=== PATIENT | female | born 2000 | race African-American/Black ===

== ENCOUNTER 2021-09-28 12:15 | Outpatient (CLI) | payer OTHER | END 2021-09-28 12:16 | disposition home or self-care (01) | LOC: CSHULT 12:15 | PROVIDERS: ATTEND Family Medicine | DX: O36.5930 Maternal care for other known or suspected poor fetal growth, third trimester, not applicable or unspecified (principal); Z3A.30 30 weeks gestation of pregnancy | CPT/HCPCS: 76816 ==

== ENCOUNTER 2021-10-23 15:15 | Day surgery (SDC) | payer OTHER | END 2021-10-23 18:06 | disposition home or self-care (01) | LOC: CSHLD/OP 15:15 | PROVIDERS: ATTEND Family Medicine | DX: O36.5930 Maternal care for other known or suspected poor fetal growth, third trimester, not applicable or unspecified (principal); Z3A.35 35 weeks gestation of pregnancy | CPT/HCPCS: 76815; 76819; 99281 ==

== ENCOUNTER 2021-10-30 15:12 | Day surgery (SDC) | payer OTHER ==
[2021-10-30 15:35] VITALS: BMI 22.6
== END 2021-10-30 18:16 | disposition left against medical advice (07) ==
LOC: CSHLD/OP 15:12
PROVIDERS: ATTEND Family Medicine
DX: O36.5930 Maternal care for other known or suspected poor fetal growth, third trimester, not applicable or unspecified (principal); Z3A.36 36 weeks gestation of pregnancy; Z53.29 Procedure and treatment not carried out because of patient's decision for other reasons
CPT/HCPCS: 76815; 76819; 99282

== ENCOUNTER 2021-11-06 15:27 | Inpatient (IN) | payer OTHER ==
[~2021-11-06 15:27] MED LIST: Bupivacaine 0.25% HCL 30 ML VIAL ONE
[2021-11-06 16:13] VITALS: BMI 21.6
[2021-11-06] MEDS ORDERED: Diphenoxylate HCl/Atropine Tablet PO PRN (18:23)
[2021-11-06] MEDS ORDERED: Acetaminophen 500 MG TAB PO PRN (18:23)
[2021-11-06] MEDS ORDERED: Ibuprofen 800 MG TAB PO PRN (18:23)
[2021-11-06] MEDS ORDERED: Promethazine HCl 25 MG/ML VIAL IM PRN (18:23)
[2021-11-06] MEDS ORDERED: Lidocaine 1% (PF) 30 ML VIAL SC PRN (18:23)
[2021-11-06] MEDS ORDERED: Ondansetron PF 4 MG/2 ML Vial IVP PRN (18:23)
[2021-11-06] MEDS ORDERED: Misoprostol 200 MCG TAB PR PRN (18:23)
[2021-11-06] MEDS ORDERED: HYDROcodone/Acetaminophen 5/325 mg Tablet PO PRN (18:23)
[2021-11-06] MEDS ORDERED: Carboprost 250 MCG/ML AMP IM PRN (18:23)
[2021-11-06] MEDS ORDERED: NS w/ Oxytocin 30 units 500 ML IVPB SCH (18:30)
[2021-11-06] MEDS ORDERED: NS w/ Oxytocin 30 units 500 ML IV SCH ×2 (18:30)
[2021-11-06] MEDS ORDERED: Penicillin G Potassium 5 MILL.UNITS in Sodium Chloride 0.9% 100 ML IVPB SCH (18:30)
[2021-11-06] MEDS: Misoprostol 100 MCG TAB VAG SCH (20:02)
[2021-11-06 20:22] LABS: Hemoglobin 11.6 g/dL (12.0-15.5); Mean Corpuscular HGB CONC 34.4 g/dL (32.0-36.0); Mean Corpuscular Hemoglobin 32.2 pg (27.0-33.0); Mean Corpuscular Volume 93.6 fl (81.6-98.3); Mean Platelet Volume 12.2 fl (7.4-10.4); Platelet Count 185 10x3/uL (150-450); RBC Distribution Width 13.4 % (11.5-14.5); White Blood Cell (WBC) Count 10.6 10x3/uL (3.5-10.5)
[2021-11-06 20:52] LABS: Syphilis Antibody Nonreactive (Nonreactive); Syphilis Antibody Index 0.11 S/CO (<1.00 Non-Reactive)
[2021-11-06 20:55] LABS: Hep B Surf Ag Non-Reactive S/CO (NonReactive)
[2021-11-06 20:56] LABS: HBSAg Index 0.17 S/CO (0-0.99)
[2021-11-06] MEDS: hydrALAZINE 20 MG/ML VIAL SLOW IVP PRN (21:01)
[2021-11-06 21:20] LABS: SARS-CoV-2 NAA Rapid Test Not Detected (NotDetected)
[2021-11-06] MEDS: Butorphanol Tartrate 1 MG/ML VIAL SLOW IVP PRN (21:23)
[2021-11-07] MEDS: Penicillin G 2.5 MILL.units 2.5 MILL.UNITS in Premix Bag 1 BAG IVPB SCH ×3 (00:01→08:47)
[2021-11-07] MEDS: Butorphanol Tartrate 1 MG/ML VIAL SLOW IVP PRN ×3 (00:36→05:20)
[2021-11-07] MEDS: Misoprostol 100 MCG TAB VAG SCH (05:32)
[2021-11-07] MEDS ORDERED: Fentanyl 2 mcg/Bup 0.1% Cadd 100 ML ONE (08:04)
[2021-11-07] MEDS ORDERED: diphenhydrAMINE 50 MG/ML VIAL IVP PRN (08:41)
[2021-11-07] MEDS ORDERED: Naloxone HCl 0.4 mg/ml Vial IVP PRN ×2 (08:41)
[2021-11-07] MEDS ORDERED: Promethazine HCl 25 MG/ML VIAL IM PRN ×2 (08:41→14:39)
[2021-11-07] MEDS ORDERED: ePHEDrine Sulfate 50 MG/10 ML VIAL SLOW IVP PRN (08:41)
[2021-11-07] MEDS ORDERED: Lactated Ringer's 500 ML IV PRN (08:41)
[2021-11-07] MEDS ORDERED: Ondansetron PF 4 MG/2 ML Vial IVP PRN ×2 (08:41→14:39)
[2021-11-07] MEDS ORDERED: Hydrocerin (Eucerin) Cream 120 gm Jar TOP PRN (08:41)
[2021-11-07] MEDS ORDERED: Acetaminophen 325 MG TAB PO PRN (08:41)
[2021-11-07] MEDS: Lactated Ringer's 1,000 ML IV SCH (08:43)
[2021-11-07] MEDS ORDERED: Fentanyl 2 mcg/Bupivacaine 0.1% Cassette 100 ML EPIDURAL SCH (08:45)
[2021-11-07] MEDS ORDERED: Communication Order-Pharmacy FS SCH (08:45)
[2021-11-07] MEDS: hydrALAZINE 20 MG/ML VIAL SLOW IVP PRN (13:44)
[2021-11-07] MEDS ORDERED: Magnesium Sulfate 20 gm/500 ml 20 GM/500 ML BAG ONE (14:03)
[2021-11-07] MEDS ORDERED: hydrALAZINE 20 MG/ML VIAL SLOW IVP PRN (14:39)
[2021-11-07] MEDS ORDERED: Milk Of Magnesia 30 ML UDCUP PO PRN (14:39)
[2021-11-07] MEDS ORDERED: Boostrix 0.5 ML (Tdap) VIAL IM ONE (14:39)
[2021-11-07] MEDS ORDERED: Bisacodyl 10 MG SUPP PR PRN (14:39)
[2021-11-07] MEDS ORDERED: hydrALAZINE 20 MG/ML VIAL ONE (14:50)
[2021-11-07] MEDS ORDERED: Calcium Gluconate 4.6 MEQ in Sodium Chloride 0.9% 100 ML IVPB PRN (14:54)
[2021-11-07] MEDS ORDERED: Magnesium Sulfate 20 GM/WATER 500 ML BAG IVPB SCH (15:00)
[2021-11-07] MEDS ORDERED: Magnesium Sulfate 20 gm/500 ml 20 GM/500 ML BAG IVPB SCH (15:00)
[2021-11-07] MEDS: Ibuprofen 800 MG TAB PO SCH (22:00)
[2021-11-08] MEDS: Ferrous Sulfate 325 MG TAB PO SCH ×3 (00:12→16:29)
[2021-11-08] MEDS: Docusate Calcium (SURFAK) 240 MG CAP PO SCH ×3 (00:12→21:13)
[2021-11-08] MEDS: Misoprostol 100 MCG TAB VAG SCH ×2 (00:13→00:14)
[2021-11-08] MEDS: Lactated Ringer's 1,000 ML IV SCH ×2 (00:14→01:05)
[2021-11-08] MEDS: Penicillin G 2.5 MILL.units 2.5 MILL.UNITS in Premix Bag 1 BAG IVPB SCH (00:14)
[2021-11-08] MEDS: Ibuprofen 800 MG TAB PO SCH ×3 (05:51→21:13)
[2021-11-08] MEDS: diphenhydrAMINE 25 MG CAP PO PRN ×3 (10:21→21:17)
[2021-11-08] MEDS: HYDROcodone/Acetaminophen 5/325 mg Tablet PO PRN ×2 (10:21→17:14)
[2021-11-08] MEDS ORDERED: cloNIDine 0.1 MG TAB PO PRN (14:09)
[2021-11-08] MEDS: Prenatal Vitamin 1 TAB PO SCH (14:31)
[2021-11-09] MEDS: Ibuprofen 800 MG TAB PO SCH ×2 (05:53→08:17)
[2021-11-09] MEDS: Ferrous Sulfate 325 MG TAB PO SCH ×2 (07:59→17:32)
[2021-11-09] MEDS: Docusate Calcium (SURFAK) 240 MG CAP PO SCH (08:17)
[2021-11-09] MEDS: Prenatal Vitamin 1 TAB PO SCH (08:17)
[2021-11-09 17:46] VITALS: BP 134/75; TEMP 98.6
== END 2021-11-09 19:10 | disposition home or self-care (01) | DRG 807 ==
LOC: CSHLD/OP 15:27 → CSHLD 15:28 → CSHPP 11-08 13:55
PROVIDERS: ADMIT Obstetrics & Gynecology; ATTEND Family Medicine
PROC: 10E0XZZ Delivery of Products of Conception, External Approach (ICD-10-PCS; principal; 2021-11-07)
DX: O80 Encounter for full-term uncomplicated delivery (principal); Z37.0 Single live birth; Z20.822 Contact with and (suspected) exposure to COVID-19; Z3A.38 38 weeks gestation of pregnancy
CPT/HCPCS: 36415; 76815; 76819; 85027; 86780; 86850; 86900; 86901; 87340; 88307; J0360; J0595; J2540; J2550; J3475; J3490; J7120; S0020; U0002

== ENCOUNTER 2021-11-11 20:05 | Observation (INO) | payer OTHER ==
[2021-11-11 20:24] LABS: Bilirubin Neg (Negative); Blood, Urine 250 (Negative); Clarity Clear (Clear); Glucose, Urine (Dipstick) Normal (Negative); Ketone, Urine Negative (Negative); Leukocyte 500 (Negative); Nitrite Negative (Negative); Protein, Urine (Dipstick) Negative (Neg-Trace); Specific Gravity, Urine 1.005 (1.002-1.036); Urobilinogen Normal mg/dL (Less than 2)
[2021-11-11 20:30] LABS: WBC/HPF 0-3 HPF (0-3)
[2021-11-11 20:31] LABS: Squamous Epithelial 0-3 HPF (0-3); Transitional Epithelial 0-3 HPF (None Seen)
[2021-11-11 20:32] LABS: Bacteria/HPF Rare-Few HPF (None Seen)
[2021-11-11] MEDS: Magnesium Sulfate 20 gm/500 ml 20 GM/500 ML BAG IVPB SCH (20:48)
[2021-11-11 20:59] LABS: #Eosinphils 0.2 10x3/uL (0.0-0.5); #Monocytes 0.6 10x3/uL (0.0-1.1); #Neutrophils 4.7 10x3/uL (1.5-8.4); %Basophils 0.5 % (0.0-2.0); %Eosinophils 2.2 % (0.0-6.0); %Lymphocytes 35.1 % (18.0-47.0); %Monocytes 7.3 % (0.0-10.0); %Neutrophils 54.1 % (40.0-75.0); Hemoglobin 12.3 g/dL (12.0-15.5); Mean Corpuscular HGB CONC 33.4 g/dL (32.0-36.0); Mean Corpuscular Hemoglobin 31.9 pg (27.0-33.0); Mean Corpuscular Volume 95.3 fl (81.6-98.3); Mean Platelet Volume 10.6 fl (7.4-10.4); Platelet Count 280 10x3/uL (150-450); RBC Distribution Width 13.1 % (11.5-14.5); Red Blood Cell (RBC) Count 3.86 10x6/uL (3.90-5.03); White Blood Cell (WBC) Count 8.6 10x3/uL (3.5-10.5)
[2021-11-11] MEDS ORDERED: Calcium Gluconate 4.6 MEQ in Sodium Chloride 0.9% 100 ML IVPB PRN (20:59)
[2021-11-11] MEDS ORDERED: Magnesium Sulfate 20 GM/WATER 500 ML BAG IVPB SCH (21:00)
[2021-11-11] MEDS ORDERED: Labetalol HCl 100 MG/20 ML VIAL SLOW IVP PRN (21:00)
[2021-11-11] MEDS ORDERED: hydrALAZINE 20 MG/ML VIAL SLOW IVP PRN (21:00)
[2021-11-11 21:13] LABS: ALT (SGPT) 11 U/L (8-55); AST (SGOT) 20 U/L (5-34); Albumin 3.6 g/dL (3.5-5.0); Alkaline Phosphatase 167 U/L (40-100); Anion Gap 14 mmol/L (10-20); BUN (Urea Nitrogen) 11 mg/dL (7.0-18.7); Bilirubin, Total 0.2 mg/dL (0.2-1.2); CK (CPK) 148 U/L (29-168); Calc. Creatinine Clearance 0 mL/min (70-130); Calcium 9.4 mg/dL (7.8-10.44); Carbon Dioxide 17 mmol/L (22-29); Chloride 111 mmol/L (98-107); Globulin 3.5 g/dL (2.4-3.5); Glucose 70 mg/dL (70-105); Magnesium 3.4 mg/dL (1.7-2.2); Potassium 3.9 mmol/L (3.5-5.1); Protein, Total 7.1 g/dL (6.0-8.3); Sodium 138 mmol/L (136-145)
[2021-11-11 21:29] LABS: Creatinine, Urine 20.37 mg/dL (47-110); Protein, Urine Random Quant Less than 10 mg/dL (1-14)
[2021-11-12] MEDS: Acetaminophen 500 MG TAB PO PRN ×2 (02:16→08:03)
[2021-11-12 05:11] VITALS: BMI 23.1
[2021-11-12 07:22] VITALS: BP 161/92
[2021-11-12] MEDS: Magnesium Sulfate 20 gm/500 ml 20 GM/500 ML BAG IVPB SCH (07:22)
[2021-11-12] MEDS ORDERED: Metoclopramide HCl 10 MG/2 ML VIAL IVP PRN (14:36)
[2021-11-12] MEDS ORDERED: diphenhydrAMINE 50 MG/ML VIAL IVP PRN (14:36)
[2021-11-12] MEDS ORDERED: Ibuprofen 800 MG TAB PO PRN (15:00)
== END 2021-11-12 20:15 | disposition left against medical advice (07) ==
LOC: CSHERS 20:05 → INTOOBSV 21:06 → CSHLD 21:06
PROVIDERS: ADMIT Family Medicine; ATTEND Family Medicine
DX: O14.15 Severe pre-eclampsia, complicating the puerperium (principal); Z53.29 Procedure and treatment not carried out because of patient's decision for other reasons
CPT/HCPCS: 36415; 51702; 80053; 81003; 81015; 82550; 82570; 83735; 84156; 85025; J1200; J2765; J3475

== ENCOUNTER 2022-04-28 22:05 | Emergency (ER) | payer OTHER | END 2022-04-28 22:29 | disposition home or self-care (01) | LOC: CSHERS 22:05 | DX: O21.9 Vomiting of pregnancy, unspecified (principal); Z3A.01 Less than 8 weeks gestation of pregnancy | CPT/HCPCS: 99284 ==

== ENCOUNTER 2022-05-20 15:47 | Emergency (ER) | payer OTHER | END 2022-05-20 17:05 | disposition home or self-care (01) | LOC: CSHERS 15:47 | DX: O21.9 Vomiting of pregnancy, unspecified (principal); Z3A.08 8 weeks gestation of pregnancy | CPT/HCPCS: 99284 ==

== ENCOUNTER 2022-07-31 12:32 | Day surgery (SDC) | payer OTHER ==
[2022-07-31] MEDS: Lactated Ringer's 1,000 ML IV SCH ×2 (12:40→13:26)
[2022-07-31 12:51] VITALS: BMI 19.4
[2022-07-31] MEDS ORDERED: Morphine 10 MG/ML VIAL SLOW IVP SCH (13:00)
[2022-07-31] MEDS ORDERED: Promethazine HCl 25 MG/ML VIAL IM SCH (13:00)
[2022-07-31] MEDS ORDERED: Morphine 10 MG/ML VIAL ONE (13:07)
[2022-07-31 14:32] LABS: #Monocytes 0.5 10x3/uL (0.0-1.1); #Neutrophils 5.6 10x3/uL (1.5-8.4); %Basophils 0.5 % (0.0-2.0); %Eosinophils 0.5 % (0.0-6.0); %Lymphocytes 21.2 % (18.0-47.0); %Monocytes 5.8 % (0.0-10.0); %Neutrophils 71.4 % (40.0-75.0); Hemoglobin 9.7 g/dL (12.0-15.5); Mean Corpuscular Volume 94.1 fl (81.6-98.3); Mean Platelet Volume 10.5 fl (7.4-10.4); Platelet Count 222 10x3/uL (150-450); RBC Distribution Width 14.2 % (11.5-14.5); Red Blood Cell (RBC) Count 3.03 10x6/uL (3.90-5.03); White Blood Cell (WBC) Count 7.9 10x3/uL (3.5-10.5)
[2022-07-31 15:39] LABS: Bilirubin Neg (Negative); Blood, Urine Negative (Negative); Clarity Clear (Clear); Glucose, Urine (Dipstick) Normal (Negative); Ketone, Urine Negative (Negative); Leukocyte Negative (Negative); Nitrite Negative (Negative); Protein, Urine (Dipstick) Negative (Neg-Trace); Urobilinogen Normal mg/dL (Less than 2)
[2022-07-31 16:18] LABS: Bacteria/HPF Rare-Few HPF (None Seen); RBC/HPF 0-3 HPF (0-3); Squamous Epithelial 0-3 HPF (0-3); WBC/HPF 0-3 HPF (0-3)
== END 2022-07-31 17:45 | disposition home health service (06) ==
LOC: CSHLD/OP 12:32
PROVIDERS: ATTEND Family Medicine
DX: O26.892 Other specified pregnancy related conditions, second trimester (principal); R10.31 Right lower quadrant pain; N13.30 Unspecified hydronephrosis; Z3A.20 20 weeks gestation of pregnancy
CPT/HCPCS: 36415; 76770; 76805; 76815; 81001; 83605; 85025; 96360; 96361; 96372; 96375; 99284; J2270; J2550

== ENCOUNTER 2022-10-22 14:51 | Day surgery (SDC) | payer OTHER ==
[2022-10-22 15:12] VITALS: BMI 21.9
== END 2022-10-22 19:13 | disposition home or self-care (01) ==
LOC: CSHLD/OP 14:51
PROVIDERS: ATTEND Family Medicine
DX: O36.5930 Maternal care for other known or suspected poor fetal growth, third trimester, not applicable or unspecified (principal); Z3A.34 34 weeks gestation of pregnancy
CPT/HCPCS: 59025; 76815; 76819; 99281

== ENCOUNTER 2022-10-29 15:49 | Day surgery (SDC) | payer OTHER ==
[2022-10-29 17:04] VITALS: BMI 22.4
== END 2022-10-29 17:30 | disposition home or self-care (01) ==
LOC: CSHLD/OP 15:49
PROVIDERS: ATTEND Family Medicine
DX: O36.5930 Maternal care for other known or suspected poor fetal growth, third trimester, not applicable or unspecified (principal); Z36.89 Encounter for other specified antenatal screening; Z3A.33 33 weeks gestation of pregnancy
CPT/HCPCS: 59025; 76815; 76819; 99282

== ENCOUNTER 2022-11-05 14:46 | Day surgery (SDC) | payer OTHER | END 2022-11-05 16:50 | disposition home or self-care (01) | LOC: CSHLD/OP 14:46 | PROVIDERS: ATTEND Family Medicine | DX: O36.5990 Maternal care for other known or suspected poor fetal growth, unspecified trimester, not applicable or unspecified (principal); Z3A.00 Weeks of gestation of pregnancy not specified | CPT/HCPCS: 76819 ==

== ENCOUNTER 2022-11-12 09:15 | Day surgery (SDC) | payer OTHER | END 2022-11-12 11:10 | disposition home health service (06) | LOC: CSHLD/OP 09:15 | PROVIDERS: ATTEND Family Medicine | DX: Z36.89 Encounter for other specified antenatal screening (principal) | CPT/HCPCS: 76815; 76819 ==

== ENCOUNTER 2022-11-21 14:13 | Inpatient (IN) | payer OTHER ==
[~2022-11-21 14:13] MED LIST changes: -Bupivacaine 0.25% HCL 30 ML VIAL ONE; +Bupivacaine/Epinephrine 0.25% 30 ML VIAL ONE
[2022-11-21] MEDS ORDERED: Acetaminophen 500 MG TAB PO PRN (14:43)
[2022-11-21] MEDS ORDERED: Lidocaine 1% (PF) 30 ML VIAL SC PRN (14:43)
[2022-11-21] MEDS ORDERED: Methylergonovine 0.2 MG/ML VIAL IM PRN (14:43)
[2022-11-21] MEDS ORDERED: Diphenoxylate HCl/Atropine Tablet PO PRN (14:43)
[2022-11-21] MEDS ORDERED: Ondansetron PF 4 MG/2 ML Vial IVP PRN (14:43)
[2022-11-21] MEDS ORDERED: hydrALAZINE 20 MG/ML VIAL SLOW IVP PRN (14:43)
[2022-11-21] MEDS ORDERED: HYDROcodone/Acetaminophen 5/325 mg Tablet PO PRN (14:43)
[2022-11-21] MEDS ORDERED: Ibuprofen 800 MG TAB PO PRN (14:43)
[2022-11-21] MEDS ORDERED: Misoprostol 200 MCG TAB PR PRN (14:43)
[2022-11-21] MEDS ORDERED: Carboprost 250 MCG/ML AMP IM PRN (14:43)
[2022-11-21] MEDS ORDERED: Promethazine HCl 25 MG/ML VIAL IM PRN (14:43)
[2022-11-21] MEDS ORDERED: Misoprostol 100 MCG TAB PO SCH (14:45)
[2022-11-21] MEDS ORDERED: NS w/ Oxytocin 30 units 500 ML IV SCH (14:45)
[2022-11-21 17:01] VITALS: BMI 22.4
[2022-11-21] MEDS ORDERED: Penicillin G Potassium 5 MILL.UNITS VIAL ONE (17:48)
[2022-11-21] MEDS ORDERED: Penicillin G Potassium 5 MILL.UNITS in Sodium Chloride 0.9% 100 ML IVPB SCH (18:30)
[2022-11-21 18:37] LABS: Hemoglobin 9.9 g/dL (12.0-15.5); Mean Corpuscular HGB CONC 35.4 g/dL (32.0-36.0); Mean Corpuscular Hemoglobin 32.9 pg (27.0-33.0); Mean Platelet Volume 11.5 fl (7.4-10.4); Platelet Count 241 10x3/uL (150-450); RBC Distribution Width 13.2 % (11.5-14.5); Red Blood Cell (RBC) Count 3.01 10x6/uL (3.90-5.03); White Blood Cell (WBC) Count 9.4 10x3/uL (3.5-10.5)
[2022-11-21 19:29] LABS: HBSAg Index 0.14 S/CO (0-0.99); Hep B Surf Ag Non-Reactive S/CO (NonReactive)
[2022-11-21 19:31] LABS: Syphilis Antibody Nonreactive (Nonreactive); Syphilis Antibody Index 0.09 S/CO (<1.00 Non-Reactive)
[2022-11-21] MEDS: Misoprostol 100 MCG TAB VAG SCH (21:51)
[2022-11-21] MEDS: Penicillin G 2.5 MILL.units 2.5 MILL.UNITS in Premix Bag 1 BAG IVPB SCH (21:55)
[2022-11-21] MEDS: Lactated Ringer's 1,000 ML IV SCH (22:03)
[2022-11-21] MEDS: Butorphanol Tartrate 1 MG/ML VIAL SLOW IVP PRN (22:59)
[2022-11-22 00:24] LABS: SARS-CoV-2 NAA Rapid Test Not Detected (NotDetected)
[2022-11-22] MEDS: Butorphanol Tartrate 1 MG/ML VIAL SLOW IVP PRN ×4 (02:59→11:32)
[2022-11-22] MEDS: Misoprostol 100 MCG TAB VAG SCH (02:59)
[2022-11-22] MEDS: Penicillin G 2.5 MILL.units 2.5 MILL.UNITS in Premix Bag 1 BAG IVPB SCH ×4 (03:13→16:08)
[2022-11-22] MEDS ORDERED: Fentanyl 2 mcg/Bup 0.1% Cadd 100 ML ONE (12:56)
[2022-11-22] MEDS ORDERED: Naloxone HCl 0.4 mg/ml Vial IVP PRN ×2 (13:21)
[2022-11-22] MEDS ORDERED: ePHEDrine Sulfate 50 MG/10 ML VIAL SLOW IVP PRN (13:21)
[2022-11-22] MEDS ORDERED: Promethazine HCl 25 MG/ML VIAL IM PRN ×2 (13:21→19:16)
[2022-11-22] MEDS ORDERED: Lactated Ringer's 500 ML IV PRN (13:21)
[2022-11-22] MEDS ORDERED: Ondansetron PF 4 MG/2 ML Vial IVP PRN ×2 (13:21→19:16)
[2022-11-22] MEDS ORDERED: Acetaminophen 325 MG TAB PO PRN (13:21)
[2022-11-22] MEDS ORDERED: Moisturizing Cream (Eucerin) 113 GM JAR TOP PRN (13:21)
[2022-11-22] MEDS ORDERED: diphenhydrAMINE 50 MG/ML VIAL IVP PRN (13:21)
[2022-11-22] MEDS ORDERED: Fentanyl 2 mcg/Bupivacaine 0.1% Cassette 100 ML EPIDURAL SCH (13:30)
[2022-11-22] MEDS ORDERED: Communication Order-Pharmacy FS SCH (13:30)
[2022-11-22] MEDS ORDERED: cloNIDine 0.1 MG TAB PO PRN (18:48)
[2022-11-22] MEDS ORDERED: Milk Of Magnesia 30 ML UDCUP PO PRN (19:16)
[2022-11-22] MEDS ORDERED: Lanolin Ointment 7 GM TUBE TOP PRN (19:16)
[2022-11-22] MEDS ORDERED: diphenhydrAMINE 25 MG CAP PO PRN (19:16)
[2022-11-22] MEDS ORDERED: Boostrix 0.5 ML (Tdap) VIAL (>/=7 yrs of age) IM ONE (19:16)
[2022-11-22] MEDS ORDERED: Bisacodyl 10 MG SUPP PR PRN (19:16)
[2022-11-22] MEDS ORDERED: NS w/ Oxytocin 30 units 500 ML IV SCH (19:16)
[2022-11-22] MEDS ORDERED: Benzocaine-Menthol 82.5 ML CAN TOP PRN (19:16)
[2022-11-22] MEDS ORDERED: HYDROcodone/Acetaminophen 5/325 mg Tablet PO PRN (19:16)
[2022-11-22] MEDS ORDERED: hydrALAZINE 20 MG/ML VIAL SLOW IVP PRN (19:16)
[2022-11-22] MEDS ORDERED: NIFEdipine XL 30 MG TAB PO SCH (20:00)
[2022-11-22] MEDS: Docusate 100 MG CAP PO SCH (21:34)
[2022-11-22] MEDS: Ibuprofen 800 MG TAB PO SCH (21:34)
[2022-11-23] MEDS: Lactated Ringer's 1,000 ML IV SCH (01:54)
[2022-11-23] MEDS: Misoprostol 100 MCG TAB VAG SCH (01:54)
[2022-11-23] MEDS: Penicillin G 2.5 MILL.units 2.5 MILL.UNITS in Premix Bag 1 BAG IVPB SCH (01:55)
[2022-11-23] MEDS: Ibuprofen 800 MG TAB PO SCH ×3 (05:09→22:35)
[2022-11-23] MEDS: NIFEdipine XL 30 MG TAB PO SCH (10:14)
[2022-11-23] MEDS: Ferrous Sulfate 325 MG TAB PO SCH ×2 (10:14→15:56)
[2022-11-23] MEDS: Docusate 100 MG CAP PO SCH ×2 (10:14→22:35)
[2022-11-24] MEDS: Ibuprofen 800 MG TAB PO SCH (06:12)
[2022-11-24] MEDS: Docusate 100 MG CAP PO SCH (08:37)
[2022-11-24] MEDS: Ferrous Sulfate 325 MG TAB PO SCH (08:37)
[2022-11-24] MEDS: NIFEdipine XL 30 MG TAB PO SCH (08:37)
[2022-11-24 12:17] VITALS: BP 125/73; TEMP 97.6
== END 2022-11-24 16:02 | disposition home or self-care (01) | DRG 807 ==
LOC: CSHLD/OP 14:13 → CSHLD 18:22 → CSHPP 11-22 19:40
PROVIDERS: ADMIT Family Medicine; ATTEND Family Medicine
PROC: 10E0XZZ Delivery of Products of Conception, External Approach (ICD-10-PCS; principal; 2022-11-22)
DX: O36.5930 Maternal care for other known or suspected poor fetal growth, third trimester, not applicable or unspecified (principal); Z37.0 Single live birth; Z3A.36 36 weeks gestation of pregnancy; Z20.822 Contact with and (suspected) exposure to COVID-19
CPT/HCPCS: 51702; 76819; 85027; 86780; 86850; 86900; 86901; 87340; 88307; 99285; J0595; J2405; J2540; J2590; J7120; U0002

== ENCOUNTER 2022-11-28 06:49 | Inpatient (IN) | payer OTHER ==
[2022-11-28] MEDS ORDERED: Magnesium Sulfate 20 gm/500 ml 20 GM/500 ML BAG IVPB SCH ×2 (07:45→12:00)
[2022-11-28] MEDS ORDERED: hydrALAZINE 20 MG/ML VIAL SLOW IVP PRN (08:48)
[2022-11-28] MEDS ORDERED: Promethazine HCl 25 MG/ML VIAL IM PRN (08:48)
[2022-11-28] MEDS ORDERED: Lorazepam 2 MG/ML VIAL SLOW IVP PRN (08:48)
[2022-11-28] MEDS ORDERED: Labetalol HCl 100 MG/20 ML VIAL SLOW IVP PRN (08:48)
[2022-11-28] MEDS ORDERED: Ondansetron PF 4 MG/2 ML Vial IVP PRN (08:48)
[2022-11-28] MEDS ORDERED: Calcium Gluc 4.6 MEQ/10 ML (100 MG/ML) SLOW IVP PRN (08:48)
[2022-11-28] MEDS ORDERED: hydrALAZINE 20 MG/ML VIAL ONE (09:03)
[2022-11-28] MEDS ORDERED: NIFEdipine XL 30 MG TAB PO SCH (12:00)
[2022-11-28 18:26] VITALS: BMI 21.9
[2022-11-28] MEDS: Ibuprofen 800 MG TAB PO PRN (20:05)
[2022-11-29] MEDS: NIFEdipine XL 30 MG TAB PO SCH (10:00)
[2022-11-29] MEDS: Ibuprofen 800 MG TAB PO PRN ×2 (10:08→17:47)
[2022-11-29] MEDS: HYDROcodone/Acetaminophen 5/325 mg Tablet PO PRN ×3 (12:22→21:51)
[2022-11-30 07:39] VITALS: BP 96/54; TEMP 98
[2022-11-30] MEDS: NIFEdipine XL 30 MG TAB PO SCH (08:25)
== END 2022-11-30 10:30 | disposition home or self-care (01) | DRG 776 ==
LOC: CSHERS 06:49 → CSHLD/OP 06:57 → CSHLD 09:09 → CSHPED 11-29 13:52
PROVIDERS: ADMIT Family Medicine; ATTEND Family Medicine
DX: O14.95 Unspecified pre-eclampsia, complicating the puerperium (principal)
CPT/HCPCS: 51702; 96365; 96375; J0360; J3475

== ENCOUNTER 2025-07-06 10:25 | Emergency (ER) | payer OTHER | END 2025-07-06 12:29 | disposition home or self-care (01) | LOC: CSHERS 10:25 | DX: O99.891 Other specified diseases and conditions complicating pregnancy (principal); R59.0 Localized enlarged lymph nodes; Z3A.28 28 weeks gestation of pregnancy | CPT/HCPCS: 99282 ==

== ENCOUNTER 2025-07-10 03:15 | Day surgery (SDC) | payer OTHER ==
[2025-07-10 04:34] VITALS: BMI 21.1
[2025-07-10] MEDS: Cyclobenzaprine 10 MG TAB PO PRN (04:47)
[2025-07-10] MEDS: Acetaminophen 500 MG TAB PO PRN (04:57)
[2025-07-10 09:41] LABS: Glucose, Urine (Dipstick) Normal (Negative); Leukocyte 25 (Negative); Protein, Urine (Dipstick) 15 mg/dl (Neg-Trace); Specific Gravity, Urine 1.015 (1.005-1.030)
[2025-07-10 09:49] LABS: Bacteria/HPF 2+ HPF (None Seen); CAUTI Indications for Culture Pregnancy; RBC/HPF 0-3 HPF (0-3)
[2025-07-10 09:50] LABS: Urine Culture Reflex Yes Yes
== END 2025-07-10 09:27 | disposition home or self-care (01) ==
LOC: CSHLD/OP 03:15
PROVIDERS: ATTEND Family Medicine
DX: O47.02 False labor before 37 completed weeks of gestation, second trimester (principal); W08.XXXA Fall from other furniture, initial encounter; Z3A.29 29 weeks gestation of pregnancy
CPT/HCPCS: 76819; 81001; 87086

== ENCOUNTER 2025-09-07 07:52 | Inpatient (IN) | payer OTHER ==
[2025-09-07] MEDS ORDERED: hydrALAZINE 20 MG/ML VIAL SLOW IVP PRN ×3 (08:46→22:15)
[2025-09-07 09:03] LABS: Fetal Membranes Rupture RUPTURE DETECTED (No Rupture)
[2025-09-07 09:28] VITALS: BMI 21.4
[2025-09-07] MEDS ORDERED: Acetaminophen 500 MG TAB PO PRN (09:29)
[2025-09-07] MEDS ORDERED: Ondansetron PF 4 MG/2 ML Vial IVP PRN ×5 (09:29→22:15)
[2025-09-07] MEDS ORDERED: Diphenoxylate HCl/Atropine Tablet PO PRN ×2 (09:29)
[2025-09-07] MEDS ORDERED: Carboprost 250 MCG/ML AMP IM PRN (09:29)
[2025-09-07] MEDS ORDERED: Methylergonovine 0.2 MG/ML VIAL IM PRN (09:29)
[2025-09-07] MEDS ORDERED: Lidocaine 1% (PF) 30 ML VIAL SC PRN (09:29)
[2025-09-07] MEDS ORDERED: Tranexamic Acid 1,000 MG/10 ML VIAL IVP PRN (09:29)
[2025-09-07] MEDS ORDERED: Ibuprofen 800 MG TAB PO PRN (09:29)
[2025-09-07] MEDS ORDERED: Oxytocin 30 units/NS 500 ML 500 ML IV SCH (09:30)
[2025-09-07 10:20] LABS: Hematocrit 31.5 % (34.9-44.5); Hemoglobin 10.6 g/dL (12.0-15.5); Mean Corpuscular Hemoglobin 31.3 pg (27.0-33.0); Mean Corpuscular Volume 92.9 fL (81.6-98.3); Platelet Count 254 10x3/uL (150-450); Red Blood Cell (RBC) Count 3.39 10x6/uL (3.90-5.03); White Blood Cell (WBC) Count 7.00 10x3/uL (3.5-10.5)
[2025-09-07] MEDS: Penicillin G Potassium 5 MILL.UNITS in Sodium Chloride 0.9% 100 ML IVPB SCH (10:32)
[2025-09-07 10:53] LABS: Hep B Surf Ag - L&D Non-Reactive S/CO (NonReactive)
[2025-09-07 10:55] LABS: Syphilis Antibody Index 0.07 S/CO (<1.00 Non-Reactive)
[2025-09-07] MEDS: fentaNYL/Ropivacaine Epidural 100 ML ONE (11:13)
[2025-09-07] MEDS ORDERED: Acetaminophen 325 MG TAB PO PRN (13:30)
[2025-09-07] MEDS ORDERED: fentaNYL 2 mcg/Ropivacaine 0.2% Epidural 100 ML CADD EPIDURAL SCH (13:30)
[2025-09-07] MEDS ORDERED: diphenhydrAMINE 50 MG/ML VIAL IVP PRN (13:30)
[2025-09-07] MEDS: Penicillin G 2.5 MILL.units 2.5 MILL.UNITS in Premix 1 BAG IVPB SCH (15:17)
[2025-09-07] MEDS ORDERED: Ketorolac Tromethamine 30 MG (1 mL) VIAL IVP PRN (19:54)
[2025-09-07] MEDS ORDERED: Meperidine HCl/PF 25 MG (1 mL) VIAL SLOW IVP PRN (19:54)
[2025-09-07] MEDS: Ketorolac Tromethamine 30 MG (1 mL) VIAL IVP SCH (20:13)
[2025-09-07] MEDS ORDERED: Bisacodyl 10 MG SUPP PR PRN (22:15)
[2025-09-07] MEDS ORDERED: Boostrix 0.5 ML (Tdap) VIAL (>/=7 yrs of age) IM ONE (22:15)
[2025-09-07] MEDS ORDERED: diphenhydrAMINE 25 MG CAP PO PRN (22:15)
[2025-09-07] MEDS ORDERED: Lanolin Ointment 7 GM TUBE TOP PRN (22:15)
[2025-09-07] MEDS ORDERED: Simethicone Chewable 80 MG TAB PO PRN (22:15)
[2025-09-07] MEDS: diphenhydrAMINE 50 MG/ML VIAL IVP PRN (23:00)
[2025-09-07] MEDS: Ferrous Sulfate 325 MG TAB PO SCH (23:47)
[2025-09-08] MEDS: CEFAZOLIN 2 GM VIAL ONE (01:47)
[2025-09-08] MEDS: Erythromycin Base 0.5% Oint 1 GM TUBE ONE (01:47)
[2025-09-08] MEDS: Azithromycin 500 MG VIAL ONE (01:47)
[2025-09-08] MEDS: Ketorolac Tromethamine 30 MG (1 mL) VIAL IVP SCH (02:00)
[2025-09-08 05:21] LABS: Hematocrit 25.7 % (34.9-44.5); Hemoglobin 8.8 g/dL (12.0-15.5); Mean Corpuscular Hemoglobin 31.5 pg (27.0-33.0); Mean Corpuscular Volume 92.1 fL (81.6-98.3); Platelet Count 253 10x3/uL (150-450); Red Blood Cell (RBC) Count 2.79 10x6/uL (3.90-5.03); White Blood Cell (WBC) Count 9.47 10x3/uL (3.5-10.5)
[2025-09-08] MEDS ORDERED: HYDROcodone/Acetaminophen 5/325 mg Tablet PO PRN (06:30)
[2025-09-08] MEDS: Ferrous Sulfate 325 MG TAB PO SCH (08:45)
[2025-09-08] MEDS: HYDROcodone/Acetaminophen 5/325 mg Tablet PO PRN (08:45)
[2025-09-08] MEDS ORDERED: Meperidine HCl/PF 25 MG (1 mL) VIAL IM PRN (09:00)
[2025-09-08] MEDS: Ibuprofen 800 MG TAB PO SCH (22:10)
[2025-09-09 20:45] VITALS: TEMP 98.1
[2025-09-10 09:15] VITALS: BP 131/90
== END 2025-09-10 15:10 | disposition home or self-care (01) | DRG 788 ==
LOC: CSHLD/OP 07:52 → CSHLD 09:12 → CSHPP 22:10
PROVIDERS: ADMIT Family Medicine; ATTEND Family Medicine
PROC: 10D00Z1 Extraction of Products of Conception, Low, Open Approach (ICD-10-PCS; principal; 2025-09-07)
DX: O98.82 Other maternal infectious and parasitic diseases complicating childbirth (principal); Z37.0 Single live birth; Z3A.38 38 weeks gestation of pregnancy; O76 Abnormality in fetal heart rate and rhythm complicating labor and delivery; O42.02 Full-term premature rupture of membranes, onset of labor within 24 hours of rupture; Z79.899 Other long term (current) drug therapy
CPT/HCPCS: 36415; 51702; 84112; 85027; 86780; 86850; 86900; 86901; 87340; 99285; J1200; J1885; J2540; J3010; J3105